=== PATIENT | male | born 2000 | race Two or more races ===

== ENCOUNTER → 2025-03-13 | Outpatient (CLI) | payer BC, SELFPAY ==
[2025-03-13 12:55] LABS: Hematocrit 45.6 % (40-54); Hemoglobin 15.3 g/dL (13.0-16.5); Immature Granulocytes Count 0.020 X10^3/uL (0.0-0.0); Mean Corp Hgb Conc 33.6 g/dL (32-36); Mean Corpuscular Volume 86.5 fL (80-94); Mean Platelet Vol. 10.9 fl (6.2-12.0); NRBC Flagged by Analyzer 0 % (0-5); Platelet Count 273 K/mm3 (150-450); RBC Distribution Width CV 11.9 % (11.6-14.6); RBC Distribution Width SD 38.1 fl (35.1-43.9); Red Blood Count 5.27 M/mm3 (4.6-6.2); White Blood Count 9.9 K/mm3 (4.4-11.0)
[2025-03-13 13:57] LABS: AST(SGOT) 19 U/L (<=37); Alanine Aminotransfer ALT/SGPT 15 U/L (<=46); Albumin, Serum 4.7 g/dL (3.5-5.0); Alkaline Phosphatase 82 U/L (40-129); Anion Gap 14 (5-15); BUN 15 mg/dL (4-19); BUN/Creat Ratio 13.4 RATIO (10-20); Calcium,Total 9.8 mg/dL (7.6-11.0); Carbon Dioxide 24.4 mmol/L (21.0-32.0); Chloride 100 mmol/L (98-108); Ferritin 113 ng/mL (37-417); Globulin 3.0 g/dL (2.2-4.2); Glucose 82 mg/dL (70-99); Iron 88 ug/dL (65-175); Iron Binding Capacity,Total 289 ug/dL (250-450); Iron Binding Capacity,Unsat 201 ug/dL (228-428); Potassium 3.7 mmol/L (3.3-5.1)
== END | disposition home or self-care (01) ==
PROVIDERS: Referring Provider Nurse Practitioner Family; Visit Provider Nurse Practitioner Family
DX: F39 Unspecified mood [affective] disorder (principal); G90.1 Familial dysautonomia [Riley-Day]; M25.50 Pain in unspecified joint; H93.13 Tinnitus, bilateral; K21.00 Gastro-esophageal reflux disease with esophagitis, without bleeding
CPT/HCPCS: 80053; 82728; 83540; 83550; 85025